=== PATIENT | female | born 1975 | race Asian ===

== ENCOUNTER → 2024-04-25 07:02 | Outpatient (REF) | payer OTHER, SELFPAY | LOC: HWWDC 07:02 | PROVIDERS: ATTENDING PHYSICIAN Nurse Practitioner | DX: Z12.31 Encounter for screening mammogram for malignant neoplasm of breast (principal) | CPT/HCPCS: 77063; 77067 ==

== ENCOUNTER → 2025-01-29 10:07 | Outpatient (REF) | payer OTHER, SELFPAY | LOC: HWRAD 10:07 | PROVIDERS: ATTENDING PHYSICIAN Obstetrics & Gynecology Gynecology; FAMILY PHYSICIAN Nurse Practitioner | DX: N93.9 Abnormal uterine and vaginal bleeding, unspecified (principal) | CPT/HCPCS: 76830; 76856 ==

== ENCOUNTER → 2025-04-29 07:34 | Outpatient (REF) | payer OTHER, SELFPAY | LOC: HWWDC 07:34 | PROVIDERS: ATTENDING PHYSICIAN Obstetrics & Gynecology Gynecology; FAMILY PHYSICIAN Nurse Practitioner | DX: Z12.31 Encounter for screening mammogram for malignant neoplasm of breast (principal) | CPT/HCPCS: 77063; 77067 ==